=== PATIENT | male | born 1940 | race Caucasian/White ===

== ENCOUNTER 2016-12-13 09:56 | Emergency (ER) | payer MEDICARE, BC ==
[~2016-12-13 09:56] MED LIST: AMITIZA8 MCG PO; CELEBREX PO; COUMADIN PO; DITROPAN XL PO; FERROUS SULFATE PO; FLOMAX0.4 MG PO; NO MEDICATIONS; PERCOCET10 PO
== END 2016-12-13 10:43 | disposition home or self-care (01) ==
LOC: CED 09:56
DX: H61.22 Impacted cerumen, left ear (principal); F17.200 Nicotine dependence, unspecified, uncomplicated
CPT/HCPCS: 99282

== ENCOUNTER 2016-12-27 05:40 | Emergency (ER) | payer MEDICARE, BC | END 2016-12-27 05:48 | disposition home or self-care (01) | LOC: CED 05:40 | DX: R04.0 Epistaxis (principal); Z98.890 Other specified postprocedural states | CPT/HCPCS: 99283 ==

== ENCOUNTER 2017-01-11 02:47 | Emergency (ER) | payer MEDICARE, BC ==
[2017-01-11 03:32] LABS: BASOPHIL# 0.1 X10e3 (0-0.3); BASOPHIL% 1.1 % (0-2.5); EOSINOPHIL# 0.2 X10e3 (0-0.7); EOSINOPHIL% 3.5 % (0.0-7.0); HEMATOCRIT 48.2 % (38.0-50.0); HEMOGLOBIN 15.6 gm/dL (13.0-16.0); LYMPHOCYTE# 1.4 X10e3 (1.0-3.5); LYMPHOCYTE% 21.1 % (17.0-45.0); MEAN CELL VOLUME 96.2 FL (83-96); MEAN CORPUSCULAR HEMOGLOBIN 31.1 PG (28-34); MEAN CORPUSCULAR HGB CONC 32.3 g/dL (30-36); MEAN PLATELET VOLUME 6.5 FL (6.5-11.5); MONOCYTE# 0.8 X10e3 (0-1.0); MONOCYTE% 11.4 % (3.0-12.0); NEUTROPHIL# 4.3 X10e3 (1.5-7.1); NEUTROPHIL% 62.9 % (40-75); PLATELET COUNT 233 X10e3 (140-420); RED BLOOD COUNT 5.01 X10e (3.90-5.60); RED CELL DISTRIBUTION WIDTH 14.2 % (11.0-15.5); WHITE BLOOD COUNT 6.8 X10e3 (4.0-10.5)
[2017-01-11 03:34] LABS: DIFF IND NO
[2017-01-11 03:53] LABS: ALBUMIN SERUM 3.5 g/dL (3.5-5.0); BILIRUBIN, DIRECT 0.1 mg/dL (0.0-0.2); BILIRUBIN,INDIRECT 0.7 mg/dL (0.0-0.9); BILIRUBIN,TOTAL 0.8 mg/dL (0.2-2.0); BUN/CREATININE RATIO 8.18; CALCIUM SERUM 8.7 mg/dL (8.4-10.2); CREATININE SERUM 1.1 mg/dL (0.6-1.4); GLOM FILT RATE Estimated 64.4 mL/min (>60); POTASSIUM 4.3 mmol/L (3.5-5.1); PROTEIN TOTAL SERUM 6.7 g/dL (6.0-8.3)
== END 2017-01-11 04:40 | disposition home or self-care (01) ==
LOC: CED 02:47
PROVIDERS: Nurse Practitioner
DX: K59.00 Constipation, unspecified (principal); I10 Essential (primary) hypertension; J44.9 Chronic obstructive pulmonary disease, unspecified; E78.5 Hyperlipidemia, unspecified
CPT/HCPCS: 36415; 80048; 80076; 83690; 85025; 99283

== ENCOUNTER 2017-03-01 05:28 | Emergency (ER) | payer MEDICARE, BC ==
--- NOTE | ~2017-03-01 | CR2 ---
[facility] A Service of [facility] RADIOLOGY TEXT RESULTS PATIENT: NOAH HUNT LOCATION: [facility] : 38 UNIT #: [id number] AGE: [address]: Pj Sequeira MD SEX: M ORDER DR: [id number] [facility] [address] [place], [place] [address] [id number] MR#: [id number] Acc #: [id number] NAME: NOAH HUNT : 1940 SEX: M STUDY DATE/TIME: 03/01/2017 7:34 UNIT: [facility] ROOM: STUDY DESCRIPTION: CR Abdomen Acute Series Attending Physician: Pj Sequeira M.D. Ordering Physician: Pj Sequeira M.D. Primary Care Physician: Guy Amezcua M.D. MEDICAL IMAGING REPORT This report is preliminary unless electronic signature is present EXAM Acute abdominal series COMPARISON February 25, [address] abdomen and pelvis dated September 27, 2016. INDICATION 76-year-old male with diffuse abdominal pain and constipation for 4 days. 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 Minimal increased hazy opacities seen on the upright AP view of the chest in the left lung base which do not appear to persist on the supine view of the upper abdomen suggesting atelectasis. Prominent breast shadows over both lung bases. No evidence of pneumothorax or significant pleural effusion. No definite evidence of pneumonia. Stable tortuosity and/or ectasia of the thoracic aorta. Normal heart size. No free subdiaphragmatic air. Calcifications of the splenic artery and in the tortuous right renal artery. Degenerative changes of the lower lumbar spine. Arterial calcifications and phleboliths in the pelvis. No evidence of bowel obstruction. Normal stool burden. IMPRESSION 1. No evidence of bowel obstruction or perforation. Normal stool burden. 2. No acute radiographic abnormality of the chest. Dictated by... Jayy Jim M.D. THIS IS AN ELECTRONICALLY VERIFIED REPORT Jayy Jim M.D. at 03/09/2017 7:47 AM CHRISTOPHER/aman [facility]. [facility] A Service of [facility] RADIOLOGY TEXT RESULTS PATIENT: NOAH HUNT LOCATION: [facility] #: [id number] : 38 UNIT #: [id number] AGE: [address]: Pj Sequeira MD SEX: M ORDER DR: TD: 03/01/2017 09:25 JOB #: [id number] MEDICAL IMAGING REPORT Page 1 of 1 COPY
[2017-03-01 07:26] LABS: BASOPHIL# 0.1 X10e3 (0-0.3); BASOPHIL% 1.1 % (0-2.5); EOSINOPHIL# 0.1 X10e3 (0-0.7); HEMATOCRIT 49.8 % (38.0-50.0); HEMOGLOBIN 16.3 gm/dL (13.0-16.0); MEAN CELL VOLUME 96.2 FL (83-96); MEAN CORPUSCULAR HEMOGLOBIN 31.4 PG (28-34); MEAN CORPUSCULAR HGB CONC 32.7 g/dL (30-36); MEAN PLATELET VOLUME 6.4 FL (6.5-11.5); MONOCYTE# 0.7 X10e3 (0-1.0); MONOCYTE% 9.1 % (3.0-12.0); NEUTROPHIL# 5.6 X10e3 (1.5-7.1); NEUTROPHIL% 75.8 % (40-75); PLATELET COUNT 232 X10e3 (140-420); RED BLOOD COUNT 5.17 X10e (3.90-5.60); RED CELL DISTRIBUTION WIDTH 13.7 % (11.0-15.5); WHITE BLOOD COUNT 7.4 X10e3 (4.0-10.5)
[2017-03-01 07:27] LABS: DIFF IND NO
[2017-03-01 07:52] LABS: BILIRUBIN, DIRECT 0.2 mg/dL (0.0-0.2); BILIRUBIN,INDIRECT 0.9 mg/dL (0.0-0.9); BILIRUBIN,TOTAL 1.1 mg/dL (0.2-2.0); CALCIUM SERUM 9.1 mg/dL (8.4-10.2); GLOM FILT RATE Estimated 72.3 mL/min (>60); POTASSIUM 4.3 mmol/L (3.5-5.1); PROTEIN TOTAL SERUM 7.2 g/dL (6.0-8.3)
== END 2017-03-01 10:15 | disposition home or self-care (01) ==
LOC: CED 05:28
PROVIDERS: Emergency Medicine
DX: K59.00 Constipation, unspecified (principal)
CPT/HCPCS: 36415; 74022; 80048; 80076; 83690; 85025; 99283